=== PATIENT | female | born 1955 | race Caucasian/White ===

== ENCOUNTER 2017-08-03 09:55 | Emergency (ER) | payer OTHER ==
[~2017-08-03] VITALS: Ht 165.1 cm; Wt 76.7 kg
[2017-08-03 10:06] VITALS: BP 99/63
== END 2017-08-03 10:35 | disposition home or self-care (01) ==
LOC: ER 09:58
DX: J32.9 Chronic sinusitis, unspecified (principal)
CPT/HCPCS: 99283; A4606; Z7610

== ENCOUNTER 2017-10-02 08:07 | Emergency (ER) | payer OTHER ==
[~2017-10-02] VITALS: Ht 165.1 cm; Wt 77.1 kg
--- NOTE | 2017-10-02 08:18 | NUR ---
c/o jaw pain x 2 days. gowned pt. placed on monitor. awaiting md order.
[2017-10-02] MEDS ORDERED: ASPIRIN 81 MG TAB.CHEW ONE (08:33)
--- NOTE | 2017-10-02 08:35 | NUR ---
pt taken to ct scan
[2017-10-02 08:58] LABS: BASOPHILS % (AUTO) 0.4 % (0.0-2.0); EOSINOPHILS % (AUTO) 0.6 % (0.0-6.0); HEMATOCRIT 43 % (33-45); HEMOGLOBIN 14.7 g/dL (11.5-14.8); LYMPHOCYTES # (AUTO) 2.2 /CMM (0.8-4.8); LYMPHOCYTES % (AUTO) 33.4 % (20.0-44.0); MEAN CORPUSCULAR HEMOGLOBIN 29 PG (26.0-33.0); MEAN CORPUSCULAR HGB CONC 34 g/dl (31.0-36.0); MEAN CORPUSCULAR VOLUME 85 fL (82-100); MONOCYTES # (AUTO) 0.3 /CMM (0.1-1.30); MONOCYTES % (AUTO) 5.3 % (2.0-12.0); NEUTROPHILS # (AUTO) 3.9 /CMM (1.8-8.9); NEUTROPHILS % (AUTO) 60.3 % (43.0-81.0); PLATELET COUNT (AUTO) 241 /CMM (150-450); RDW COEFFICIENT OF VARIATION 13.8 (11.5-15.0); RED BLOOD CELL COUNT(AUTO) 5.03 MIL/uL (4.0-5.2); WHITE BLOOD COUNT (AUTO) 6.5 K/uL (4.3-11.0)
[2017-10-02] MEDS ORDERED: ASPIRIN 81 MG TAB.CHEW PO SCH (09:00)
[2017-10-02 09:03] LABS: CALCIUM, SERUM 9.1 mg/dL (8.5-10.1); CREATININE 1.1 mg/dL (0.6-1.3); POTASSIUM 3.5 mmol/L (3.5-5.1)
--- NOTE | 2017-10-02 11:49 | NUR ---
Patient discharged to home in stable condition. Written and verbal after care instructions given. Patient verbalizes understanding of instruction.
--- NOTE | 2017-10-02 11:49 | NUR ---
IV removed. Catheter intact and site benign. Pressure and 4x4 applied to site. No bleeding noted.
[2017-10-02 11:50] VITALS: BP 136/77
== END 2017-10-02 11:52 | disposition home or self-care (01) ==
LOC: ER 08:08
DX: R68.84 Jaw pain (principal); E78.00 Pure hypercholesterolemia, unspecified; Z79.82 Long term (current) use of aspirin
CPT/HCPCS: 36415; 71046; 80048-TC; 84484-TC; 85025-TC; A4606; Z7610

== ENCOUNTER 2021-02-22 01:00 | Emergency (ER) | payer OTHER ==
[~2021-02-22] VITALS: Ht 165.1 cm; Wt 76.2 kg
[2021-02-22 01:00] VITALS: BP 166/87
[2021-02-22] MEDS ORDERED: CETI-90 PO (01:14)
[2021-02-22] MEDS ORDERED: FAMO-64 PO (01:14)
[2021-02-22] MEDS ORDERED: FAMOTIDINE (20 MG) 20 MG TABLET ONE ×2 (01:14→01:15)
[2021-02-22] MEDS ORDERED: predniSONE 20 MG TABLET ONE (01:14)
[2021-02-22] MEDS ORDERED: PRED20TA GT (01:14)
[2021-02-22] MEDS ORDERED: predniSONE 20 MG TABLET PO ONE (01:30)
[2021-02-22] MEDS ORDERED: FAMOTIDINE (20 MG) 20 MG TABLET PO ONE (01:30)
== END 2021-02-22 01:22 | disposition home or self-care (01) ==
LOC: ER 01:03
DX: L50.9 Urticaria, unspecified (principal); T41.3X5A Adverse effect of local anesthetics, initial encounter; E03.9 Hypothyroidism, unspecified; Z60.2 Problems related to living alone; Y92.89 Other specified places as the place of occurrence of the external cause
CPT/HCPCS: 99283; J7512

== ENCOUNTER 2021-04-26 15:49 | Emergency (ER) | payer OTHER ==
[~2021-04-26] VITALS: Ht 165.1 cm; Wt 76.2 kg
[~2021-04-26 15:49] MED LIST: CETI-90 PO; FAMO-64 PO; PRED20TA GT
[2021-04-26 15:58] VITALS: BP 155/79
--- NOTE | 2021-04-26 16:04 | NUR ---
URINE COLLECTED AND SENT TO THE LAB
[2021-04-26 16:32] LABS: BILIRUBIN,URINE NEGATIVE (NEGATIVE); COLOR,URINE YELLOW (YELLOW); LEUKOCYTE ESTERASE ,URINE MODERATE (NEGATIVE); NITRITE, URINE NEGATIVE (NEGATIVE); PROTEIN,URINE NEGATIVE (NEGATIVE); UGLUCOSE NEGATIVE (NEGATIVE); UROBILINOGEN,URINE 0.2 EU/dL (0.2)
[2021-04-26] MEDS ORDERED: CEPH500C2 PO (16:43)
[2021-04-26] MEDS ORDERED: PHEN-704 PO (16:43)
[2021-04-26 16:47] LABS: BACTERIA,URINE Few /HPF (None Seen); SQUAMOUS EPITHELIAL CELL,UR Few /HPF (None Seen); URINE AMORPHOUS PHOSPHATES Few /HPF (None Seen)
== END 2021-04-26 17:08 | disposition home or self-care (01) ==
LOC: ER 16:05
DX: N39.0 Urinary tract infection, site not specified (principal); E78.00 Pure hypercholesterolemia, unspecified; E03.9 Hypothyroidism, unspecified; Z60.2 Problems related to living alone; Z79.899 Other long term (current) drug therapy
CPT/HCPCS: 81001; 87086-TC; 87186-TC

== ENCOUNTER 2021-09-25 03:01 | Emergency (ER) | payer OTHER ==
[~2021-09-25] VITALS: Ht 165.1 cm; Wt 76.7 kg
[~2021-09-25 03:01] MED LIST changes: +CEPH500C2 PO; +PHEN-704 PO
--- NOTE | 2021-09-25 03:19 | NUR ---
BIBS C/O BURNING PAIN ON URINATION. PT IS AAO X 4, IN NO ACUTE DISTRESS, SATURATION AT 98% ON ROOM AIR. PT FURTHER STATES SHE NOTICED A BIT OF BLOOD TODAY. PT ATTACHED TO MONITOR AND PULSE OX, WILL CONT TO MONITOR, AWAITING TO BE SEEN BY DR BALBUENA.
--- NOTE | 2021-09-25 03:20 | NUR ---
URINE COLLECTED, SENT TO LAB
--- NOTE | 2021-09-25 03:21 | NUR ---
DR BALBUENA AT BEDSIDE
[2021-09-25 04:09] LABS: BILIRUBIN,URINE NEGATIVE (NEGATIVE); COLOR,URINE YELLOW (YELLOW); LEUKOCYTE ESTERASE ,URINE MODERATE (NEGATIVE); NITRITE, URINE NEGATIVE (NEGATIVE); PROTEIN,URINE 30 mg/dl (NEGATIVE); UGLUCOSE NEGATIVE (NEGATIVE); UROBILINOGEN,URINE 0.2 EU/dL (0.2)
[2021-09-25] MEDS ORDERED: CEPH500C2 PO (04:41)
--- NOTE | 2021-09-25 04:51 | NUR ---
Patient discharged to home in stable condition. Written and verbal after care instructions given. Patient verbalizes understanding of instruction. Patient ambulatory with a steady gait
[2021-09-25 04:52] VITALS: BP 145/92
[2021-09-25 07:04] LABS: RBC,URINE 81-100 /HPF (0-2); WBC,URINE 21-50 /HPF (0-3)
[2021-09-25 07:05] LABS: BACTERIA,URINE 2+ /HPF (None Seen); SQUAMOUS EPITHELIAL CELL,UR Few /HPF (None Seen)
== END 2021-09-25 04:52 | disposition home or self-care (01) ==
LOC: ER 03:08
DX: N30.01 Acute cystitis with hematuria (principal); R30.0 Dysuria; E03.9 Hypothyroidism, unspecified; Z60.2 Problems related to living alone; Z79.899 Other long term (current) drug therapy
CPT/HCPCS: 81001; 87086-TC; 87186-TC

== ENCOUNTER 2022-08-16 04:09 | Emergency (ER) | payer OTHER ==
[~2022-08-16] VITALS: Ht 165.1 cm; Wt 77.1 kg
[2022-08-16 05:12] LABS: BILIRUBIN,URINE NEGATIVE (NEGATIVE); COLOR,URINE YELLOW (YELLOW); LEUKOCYTE ESTERASE ,URINE 3+ (NEGATIVE); NITRITE, URINE NEGATIVE (NEGATIVE); PROTEIN,URINE NEGATIVE (NEGATIVE); UGLUCOSE NEGATIVE (NEGATIVE); UROBILINOGEN,URINE 0.2 EU/dL (0.2)
[2022-08-16 05:14] LABS: BACTERIA,URINE Few /HPF (None Seen); SQUAMOUS EPITHELIAL CELL,UR Moderate /HPF (None Seen)
[2022-08-16] MEDS ORDERED: SULF1TAB48 PO (05:28)
[2022-08-16 05:35] VITALS: BP 140/85
== END 2022-08-16 05:36 | disposition home or self-care (01) ==
LOC: ER 04:12
DX: N39.0 Urinary tract infection, site not specified (principal); E78.00 Pure hypercholesterolemia, unspecified; E03.9 Hypothyroidism, unspecified; Z60.2 Problems related to living alone; Z79.899 Other long term (current) drug therapy
CPT/HCPCS: 81001; 87086-TC

== ENCOUNTER 2024-01-03 16:05 | Emergency (ER) | payer MEDICARE, OTHER ==
[~2024-01-03] VITALS: Ht 165.1 cm; Wt 76.2 kg
[~2024-01-03 16:05] MED LIST changes: +SULF1TAB48 PO
[2024-01-03] MEDS ORDERED: PHEN-704 PO (16:29)
[2024-01-03] MEDS ORDERED: CEPH-570 PO (16:29)
[2024-01-03] MEDS ORDERED: CEPHALEXIN MONOHYDRATE 500 MG CAPSULE PO ONE (16:32)
[2024-01-03] MEDS: CEPHALEXIN MONOHYDRATE 500 MG CAPSULE PO ONE (16:38)
[2024-01-03 16:58] LABS: APPEARANCE,URINE CLEAR (CLEAR); BILIRUBIN,URINE NEGATIVE (NEGATIVE); BLOOD, URINE 3+ Ery/uL (NEGATIVE); COLOR,URINE YELLOW (YELLOW); KETONES,URINE NEGATIVE (NEGATIVE); LEUKOCYTE ESTERASE ,URINE 2+ (NEGATIVE); NITRITE, URINE POSITIVE (NEGATIVE); PROTEIN,URINE NEGATIVE (NEGATIVE); UGLUCOSE NEGATIVE (NEGATIVE); UROBILINOGEN,URINE 0.2 EU/dL (0.2)
[2024-01-03 17:16] VITALS: BP 138/78; TEMP 98.6; O2SAT 99
[2024-01-03 17:23] LABS: ADD URINE CULTURE YES; BACTERIA,URINE 2+ /HPF (None Seen); SQUAMOUS EPITHELIAL CELL,UR Few /HPF (None Seen); WBC,URINE 21-50 /HPF (0-3)
== END 2024-01-03 17:17 | disposition home or self-care (01) ==
LOC: ER 16:10
DX: N30.00 Acute cystitis without hematuria (principal); E03.9 Hypothyroidism, unspecified; Z85.038 Personal history of other malignant neoplasm of large intestine; Z88.8 Allergy status to other drugs, medicaments and biological substances; Z60.2 Problems related to living alone
CPT/HCPCS: 81001; 87086-TC